=== PATIENT | male | born 1980 | race Caucasian/White ===

== ENCOUNTER 2017-03-15 23:06 | Observation (INO) | payer OTHER ==
[2017-03-15 23:09] VITALS: BP 160/99; PULSE 88; RESP 18; TEMP 98.6; O2SAT 97
[2017-03-16] VITALS (9 sets, daily range): BP systolic 87–142; BP diastolic 51–84; PULSE 50–81; RESP 18–20; TEMP 98–98.2; O2SAT 96–100
[2017-03-16] MEDS ORDERED: SODIUM CHLORIDE 0.9% FLUSH 10 ML FLUSH IVF PRN (00:30)
[2017-03-16] MEDS ORDERED: ORPHENADRINE INJ 60 MG/2 ML AMP IV ONE (00:30)
[2017-03-16] MEDS ORDERED: KETOROLAC TROMETHAMINE 30 MG/ML (IVP) VIAL IV PUSH ONE (00:30)
--- NOTE | 2017-03-16 00:44 | PD ---
HPI Chief Complaint: Respiratory Symptoms Time Seen by Provider: 00:25 Travel History International Travel<30 days: No Contact w/Intl Traveler<30days: No Traveled to known affect area: No History of Present Illness HPI Patient is a 36-year-old male presented to the emergency department for evaluation of shortness of breath and chest tightness. Patient states approximately 9:30 PM this evening he was standing in the kitchen talking to a family member when he suddenly was unable to breathe or catch his breath, at the same time he experienced chest tightness. He states that he grabbed a bottle water walked to the bathroom, his followed him and subsequently called 911 because she did not look well. Patient states that he felt like he was going to pass out at that time. The episode lasted for a few minutes, canceled EMS the patient arrived in private vehicle. 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 He denies any past medical history but does not routinely have physical examinations. He denies any family history of cardiac disease. The patient does not smoke, he drinks occasional alcohol, and leads a mostly sedentary life. PFSH Past Medical History Medical History: Denies Significant Hx Diminished Hearing: No Tetanus Vaccination: Unknown Past Surgical History Surgical History: No Previous Surgery Social History Alcohol Use: No Tobacco Use: No Substance Use: No Allergies-Medications (Allergen,Severity, Reaction): Coded Allergies: No Known Allergies (Unverified , 03/16/17) Reported Meds & Prescriptions Reported Meds & Active Scripts Active No Active Prescriptions or Reported Medications Review of Systems Except as stated in HPI: all other systems reviewed are Neg Cardiovascular: Positive: Chest Pain or Discomfort Respiratory: Positive: Shortness of Breath Musculoskeletal: Positive: Pain Physical Exam Narrative GENERAL: Well-developed, well-nourished, alert male. Resting comfortably in no acute distress. SKIN: Warm and dry. HEAD: Atraumatic. Normocephalic. EYES: Pupils equal and round. No scleral icterus. No injection or drainage. ENT: No nasal bleeding or discharge. Mucous membranes pink and moist. NECK: Trachea midline. No JVD. CARDIOVASCULAR: Regular rate and rhythm. RESPIRATORY: No accessory muscle use. Clear to auscultation. Breath sounds equal bilaterally. GASTROINTESTINAL: Abdomen soft, non-tender, nondistended. Hepatic and splenic margins not palpable. MUSCULOSKELETAL: Extremities without clubbing, cyanosis, or edema. No obvious deformities. Tenderness to palpation of left upper back medial to the scapula NEUROLOGICAL: Awake and alert. No obvious cranial nerve deficits. Motor grossly within normal limits. Five out of 5 muscle strength in the arms and legs. Normal speech. PSYCHIATRIC: Appropriate mood and affect; insight and judgment normal. Data Data Last Documented VS Vital Signs Date Time Temp Pulse Resp B/P Pulse Ox O2 Delivery O2 Flow Rate FiO2 03/16/17 02:19 68 20 128/75 97 Nasal Cannula 2 03/15/17 23:09 98.6 Orders Electrocardiogram (03/16/17 00:25) Basic Metabolic Panel (Bmp) (03/16/17 00:25) Ckmb (Isoenzyme) Profile (03/16/17 00:25) Complete Blood Count With Diff (03/16/17 00:25) Magnesium (Mg) (03/16/17 00:25) Troponin I (03/16/17:25) Ecg Monitoring (03/16/17 00:25) Iv Access Insert/Monitor (03/16/17 00:25) Sodium Chloride 0.9% Flush (Ns Flush) (03/16/17 00:30) Ketorolac Inj (Toradol Inj) (03/16/17 00:30) Orphenadrine Inj (Norflex Inj) (03/16/17 00:30) Lorazepam (Ativan) (03/16/17 00:45) Sodium Chlor 0.9% 1000 Ml Inj (Ns 1000 M (03/16/17 01:30) Chest, Single Ap (03/16/17 ) CKMB (03/16/17 01:30) CKMB% (03/16/17 01:30) Admit Order (Ed Use Only) (03/16/17 02:48) Activity Bed Rest With Brp (03/16/17 02:48) Vital Signs (Adult) Q4H (03/16/17 02:48) Cardiac Rhythm .As Directed (03/16/17 02:48) Notify Dr: Other .PRN (03/16/17 02:48) Notify . Parameters (03/16/17 02:48) Resp Oxygen Nasal Cannula (03/16/17 ) Diet Npo (03/16/17 Breakfast) Ckmb (Isoenzyme) Profile (03/16/17 04:30) Ckmb (Isoenzyme) Profile (03/16/17 07:30) Troponin I (03/16/17 04:30) Troponin I (03/16/17 07:30) Electrocardiogram (03/16/17 04:30) Electrocardiogram (03/16/17 07:30) ^ Obtain (03/16/17 02:48) Sodium Chlor 0.9% 1000 Ml Inj (Ns 1000 M (03/16/17 02:48) Acetaminophen (Tylenol) (03/16/17 03:00) Ondansetron Inj (Zofran Inj) (03/16/17 03:00) Release And Technical Records Clerk / Telemetry [email or web address] (03/16/17 02:48) Labs Laboratory Tests Test 03/16/17 01:30 White Blood Count 8.6 TH/MM3 Red Blood Count 4.97 MIL/MM3 Hemoglobin 14.3 GM/DL Hematocrit 42.7 % Mean Corpuscular Volume 86.1 FL Mean Corpuscular Hemoglobin 28.8 PG Mean Corpuscular Hemoglobin 33.5 % Concent Red Cell Distribution Width 13.4 % Platelet Count 321 TH/MM3 Mean Platelet Volume 6.4 FL Neutrophils (%) (Auto) 51.8 % Lymphocytes (%) (Auto) 36.4 % Monocytes (%) (Auto) 6.9 % Eosinophils (%) (Auto) 4.4 % Basophils (%) (Auto) 0.5 % Neutrophils # (Auto) 4.5 TH/MM3 Lymphocytes # (Auto) 3.1 TH/MM3 Monocytes # (Auto) 0.6 TH/MM3 Eosinophils # (Auto) 0.4 TH/MM3 Basophils # (Auto) 0.0 TH/MM3 CBC Comment DIFF FINAL Differential Comment Sodium Level 142 MEQ/L Potassium Level 3.7 MEQ/L Chloride Level 107 MEQ/L Carbon Dioxide Level 27.1 MEQ/L Anion Gap 8 MEQ/L Blood Urea Nitrogen 10 MG/DL Creatinine 0.87 MG/DL Estimat Glomerular Filtration 99 ML/MIN Rate Random Glucose 97 MG/DL Calcium Level 9.0 MG/DL Magnesium Level 2.1 MG/DL Total Creatine Kinase 427 U/L Creatine Kinase MB 2.7 NG/ML Creatine Kinase MB % 0.6 % Troponin I LESS THAN 0.02 NG/ML MDM Medical Decision Making Medical Screen Exam Complete: Yes Emergency Medical Condition: Yes Interpretation(s) Vital Signs Date Time Temp Pulse Resp B/P Pulse Ox O2 Delivery O2 Flow Rate FiO2 03/16/17 00:21 16 03/15/17 23:09 98.6 88 18 160/99 97 Room Air Differential Diagnosis Esophageal spasms versus acute coronary syndrome versus muscle spasm versus cardiac arrhythmia versus other Narrative Course Patient's a 36-year-old male presenting for evaluation of respiratory symptoms and chest tightness. Labs and imaging ordered pending, at bedside, vital signs stable. RN went to draw patient's blood, patient stated that he is extremely afraid of needles. He was refusing lab draws unless he could be given something to help him calm down. Discussed with my attending physician who ordered oral Ativan. Initial EKG shows normal sinus rhythm Chest x-ray shows no acute disease 0125 during lab draw/IV initiation patient had a vasovagal episode, his blood pressure dropped to 88/52 systolic and his heart rate was in the low 50s. The fluids ordered. Patient was aroused during the entire episode. His vital signs have been routinely assessed since the episode and remained stable. In addition to the vasovagal episode patient is likely experiencing some side effects related to the Ativan. CBC is unremarkable Chemistry is unremarkable Troponin less than 0.02 Discussed treatment with my attending physician prior to the end of his shift, due to patient's chief complaint, symptoms is reasonable to place patient in observation in the chest pain center. Discussed with patient and his are agreeable, orders placed. Diagnosis Primary Impression: Atypical chest pain Admitting Information Admitting Physician Requests: Observation Scripts No Active Prescriptions or Reported Meds Condition: Gemini Ribeiro Ann [employer] Mar 16, 2017 00:44
[2017-03-16] MEDS ORDERED: LORazepam 1 MG TAB PO ONE (00:45)
[2017-03-16] MEDS ORDERED: SODIUM CHLOR 0.9% 1000 ML INJ 1,000 ML IV ONE (01:30)
[2017-03-16 01:46] LABS: AUTOMATED NEUTROPHIL # 4.5 TH/MM3 (1.8-7.7); BASOPHIL % 0.5 % (0.0-2.0); EOSINOPHIL # 0.4 TH/MM3 (0-0.4); EOSINOPHIL % 4.4 % (0.0-4.0); HEMATOCRIT 42.7 % (39.0-51.0); HEMO FLAGS DIFF FINAL; LYMPH % 36.4 % (9.0-44.0); LYMPHOCYTE # 3.1 TH/MM3 (1.0-4.8); MEAN CELL VOLUME 86.1 FL (80.0-100.0); MEAN CORPUSCULAR HEMOGLOBIN 28.8 PG (27.0-34.0); MEAN CORPUSCULAR HGB CONC 33.5 % (32.0-36.0); MONO % 6.9 % (0.0-8.0); NEUT % 51.8 % (16.0-70.0); PLATELET COUNT 321 TH/MM3 (150-450); RED BLOOD COUNT 4.97 MIL/MM3 (4.50-5.90); RED CELL DISTRIBUTION WIDTH 13.4 % (11.6-17.2); WHITE BLOOD COUNT 8.6 TH/MM3 (4.0-11.0)
--- NOTE | 2017-03-16 01:52 | RADRPT ---
EXAM DATE/TIME: 03/16/2017 01:24 [facility] COMPARISON: No previous studies available for comparison. INDICATIONS : Shortness of breath, vasovagal episode post IV insertion. MEDICAL HISTORY : None. SURGICAL HISTORY : None. ENCOUNTER: Initial ACUITY: 1 day PAIN SCORE: Non-responsive. LOCATION: Bilateral chest FINDINGS: A single view of the chest demonstrates the lungs to be symmetrically aerated without evidence of mas s, infiltrate or effusion. The cardiomediastinal contours are unremarkable. Osseous structures are intact. CONCLUSION: No acute disease. Danyel Mohr MD on March 16, 2017 at 1:50 Board Certified Radiologist. This report was verified electronically.
[2017-03-16 02:06] LABS: ANION GAP 8 MEQ/L (5-15); BICARBONATE 27.1 MEQ/L (21.0-32.0); BLOOD UREA NITROGEN 10 MG/DL (7-18); CHLORIDE 107 MEQ/L (98-107); GLOMERULAR FILTRATION RATE 99 ML/MIN (>89); MAGNESIUM 2.1 MG/DL (1.5-2.5); POTASSIUM 3.7 MEQ/L (3.5-5.1); SODIUM (NA) 142 MEQ/L (136-145)
[2017-03-16 02:09] LABS: CREATINE KINASE 427 U/L (39-308)
[2017-03-16 02:22] LABS: CKMB 2.7 NG/ML (0.5-3.6)
[2017-03-16] MEDS ORDERED: SODIUM CHLOR 0.9% 1000 ML INJ 1,000 ML IV SCH (02:48)
[2017-03-16] MEDS ORDERED: ONDANSETRON HCL 4 MG/2 ML VIAL IV PRN (03:00)
[2017-03-16] MEDS ORDERED: ACETAMINOPHEN 500 MG CPLT PO PRN (03:00)
[2017-03-16 05:13] LABS: CREATINE KINASE 366 U/L (39-308)
[2017-03-16 05:26] LABS: CKMB 2.4 NG/ML (0.5-3.6)
[2017-03-16 08:19] LABS: CREATINE KINASE 334 U/L (39-308)
[2017-03-16 08:32] LABS: CKMB 2.4 NG/ML (0.5-3.6)
--- NOTE | 2017-03-16 11:00 | HHI.HP ---
HPI Primary Care Physician No Primary Care Physician Chief Complaint Chest pain History of Present Illness This is a 36-year-old male that presents to ED via private vehicle to evaluate chest discomfort and shortness of breath. He states that around 9:00 last evening is watching television. He suddenly became short of breath or he decided to walk to get something to drink. His symptoms worsen. He then felt like he was about to pass out. His fiance been called 911. By the time they had arrived he was feeling better and decided not to come to the ED by ambulance. He is also having a discomfort in his chest that lasts a few minutes. He had no nausea or diaphoresis. He decided to come to the ED to evaluate his discomfort. Patient states he has history of passing out. He states that whenever he has an IV her gets a shot he will pass out. He states that he passed out in the ED while the IV was being placed in his arm. Denies history of CAD. Cannot recall ever having a stress test. The left side of his upper back has been hurting the last few days. He states a 4 days ago he helped his father take down a carport. Denies recent illnesses. Denies fevers or chills. Review of Systems General: Patient denies fevers, chills recent, and recent travel HEENT: Patient denies headache, sore throat, difficulty swallowing. Cardiovascular: Has the chest discomfort as mentioned above. Denies sensation of heart beating rapidly or irregularly. Denies diaphoresis. He states that he passed out in the ED on IV was being inserted in his left arm. Respiratory: He was short of breath. Denies inspirational chest discomfort. Denies coughing wheezing or hemoptysis. GI: Patient denies nausea, vomiting, diarrhea, abdominal pain, bloody stools. Musculoskeletal: Complains of left upper back pain. Patient denies joint pain or edema. Denies calf pain or edema. Neurovascular: Patient denies numbness, tingling, weakness in extremities. Denies headache. Endocrine: Denies polyuria and polydipsia. Hematologic: Denies easy bruising. Skin: Denies rash or itching. Past Family Social History Allergies: Coded Allergies: No Known Allergies (Unverified , 03/16/17) Past Medical History Denies hypertension, hyperlipidemia, diabetes, and known CAD. Past Surgical History Denies. Reported Medications Reported Meds & Active Scripts Active No Active Prescriptions or Reported Medications Active Ordered Medications Current Medications Medications (Trade) Dose Ordered Sig/Darvin Route Start Time Stop Time Status Last Admin Sodium Chloride 2 ml 2 ml UNSCH PRN IVF 03/16/17 00:30 (NS 1000 ml Inj) 1,000 ml @ 100 mls/hr Q10H IV 03/16/17 02:48 03/16/17 04:45 (Tylenol) 500 mg Q4H PRN PO 03/16/17 03:00 (Zofran Inj) 4 mg Q6H PRN IV 03/16/17 03:00 Family History Denies family history of CAD. Social History Patient denies tobacco abuse. Denies illicit drug use. He drinks on average 6 pack of beer twice a week. He is a supervisor computer operations. Physical Exam Vital Signs Vital Signs Date Time Temp Pulse Resp B/P Pulse Ox O2 Delivery O2 Flow Rate FiO2 03/16/17 08:32 98.0 66 18 142/84 99 03/16/17 06:12 99 Nasal Cannula 2.00 03/16/17 05:06 98.2 74 19 128/63 96 03/16/17 04:44 81 20 134/79 100 Nasal Cannula 2 03/16/17 02:19 68 20 128/75 97 Nasal Cannula 2 03/16/17 01:41 64 20 129/71 99 Nasal Cannula 2 03/16/17 01:29 60 20 122/61 100 Nasal Cannula 2 03/16/17 01:25 50 20 87/53 100 Nasal Cannula 2 03/16/17 01:20 54 20 94/51 100 03/16/17 00:21 16 03/15/17 23:09 98.6 88 18 160/99 97 Room Air Physical Exam GENERAL: This is a well-nourished, well-developed patient, in no apparent distress. Patient speaks in clear complete sentences. Patient is pleasant. HEENT: Head is atraumatic and normocephalic. Neck is supple without lymphadenopathy and trachea is midline. No JVD or carotid bruits. CARDIOVASCULAR: Regular rate and rhythm without murmurs, gallops, or rubs. RESPIRATORY: Clear to auscultation. Breath sounds equal bilaterally. No wheezes , rales, or rhonchi. Chest wall is nontender. No use of accessory muscles. GASTROINTESTINAL: Abdomen is nontender, nondistended. Abdomen soft. No obvious pulsatile mass or bruit. No CVA tenderness. Strong femoral pulses bilaterally. Normal bowel sounds in all quadrants. MUSCULOSKELETAL: Patient is moving upper and lower extremities freely. No calf tenderness or edema, no Homans sign. Strong pulses in upper and lower extremities. NEUROLOGICAL: Patient is alert and oriented. Cranial nerves 2-12 are grossly intact. No focal deficits and speech is clear. SKIN: No rash and turgor is normal. Laboratory Laboratory Tests Test 03/16/17 03/16/17 03/16/17 01:30 04:30 07:30 White Blood Count 8.6 Red Blood Count 4.97 Hemoglobin 14.3 Hematocrit 42.7 Mean Corpuscular Volume 86.1 Mean Corpuscular Hemoglobin 28.8 Mean Corpuscular Hemoglobin 33.5 Concent Red Cell Distribution Width 13.4 Platelet Count 321 Mean Platelet Volume 6.4 Neutrophils (%) (Auto) 51.8 Lymphocytes (%) (Auto) 36.4 Monocytes (%) (Auto) 6.9 Eosinophils (%) (Auto) 4.4 Basophils (%) (Auto) 0.5 Neutrophils # (Auto) 4.5 Lymphocytes # (Auto) 3.1 Monocytes # (Auto) 0.6 Eosinophils # (Auto) 0.4 Basophils # (Auto) 0.0 CBC Comment DIFF FINAL Differential Comment Sodium Level 142 Potassium Level 3.7 Chloride Level 107 Carbon Dioxide Level 27.1 Anion Gap 8 Blood Urea Nitrogen 10 Creatinine 0.87 Estimat Glomerular Filtration 99 Rate Random Glucose 97 Calcium Level 9.0 Magnesium Level 2.1 Total Creatine Kinase 427 366 334 Creatine Kinase MB 2.7 2.4 2.4 Creatine Kinase MB % 0.6 0.7 0.7 Troponin I LESS THAN 0.02 LESS THAN 0.02 LESS THAN 0.02 Result Diagram: 03/16/17 0130 03/16/17 0130 Imaging Last 48 hours Impressions Chest X-Ray 03/16/17 0000 Signed Impressions: Service Date/Time: Thursday, March 16, 2017 01:24 - CONCLUSION: No acute disease. Danyel Mohr MD Course EKGs have sinus rhythm without significant ST segment depressions or elevations. Assessment and Plan Assessment and Plan * Chest pain: Patient has had serial cardiac enzymes and EKGs for ruling out purposes. He will be seen by Dr. Guerrero in the chest pain center. He will undergo a Gareth protocol ETT and if that is nonischemic will be discharged home to follow-up with a local primary care physician. Patient is stable at this time. He is agreeable to this plan. Lamont Ryder Mar 16, 2017 11:00
--- NOTE | 2017-03-16 12:04 | EKG ---
Date Performed: 03/16/2017 Time Performed: 00:30:19 PTAGE: 36 years EKG: Sinus rhythm MODERATE INTRAVENTRICULAR CONDUCTION DELAY BORDERLINE ECG NO PREVIOUS TRACING DOCTOR: Erick Garsia Interpretating Date/Time 03/16/2017 12:03:50
--- NOTE | 2017-03-16 12:10 | EKG ---
Date Performed: 03/16/2017 Time Performed: 04:27:56 PTAGE: 36 years EKG: Sinus rhythm MODERATE INTRAVENTRICULAR CONDUCTION DELAY MODERATE T-WAVE ABNORMALITY, CONSIDER ANTERIOR ISCHEMIA A BNORMAL ECG PREVIOUS TRACING : 03/16/2017 00.30 DOCTOR: Erick Garsia Interpretating Date/Time 03/16/2017 12:09:16
--- NOTE | 2017-03-16 12:26 | TR ---
Date Performed: 03/16/2017 Time Performed: 09:34:42 DOCTOR: Erick Garsia DRUG LIST: CLINICAL HISTORY: REASON FOR TEST: ATYPICAL CHEST PAIN REASON FOR ENDING: OBSERVATION: CONCLUSION: JEANNA PROTOCOL. NO CP. TEST STOPPED AFTER EXCEEDING GOAL HR SECONDARY TO SOB AND LEG FATIGUE. HYPERTENSIVE RESPONSE TO EXERCISE. GOOD EXERCISE TOLERANCE. ECG TRACINGS ARE NEGATIVE FOR I SCHEMIC CHANGES. RECOVERY WAS MILDLY PROLONGED WITH RESOLUTION OF SHORTNESS OF BREATH, BLOOD PRESSURE RETURNED TO NORMAL. Maximum HN=971 % Max HR Achieved=92.0% Maximum GF=438/98 Total Exercise Time=10 :01 COMMENTS: CONCLUSION: Normal exercise treadmill. No evidence of ischemia.
--- NOTE | 2017-03-16 13:42 | HHI.DCPOC ---
Discharge Care Plan Diagnosis: (1) Atypical chest pain Goals to Promote Your Health * To prevent worsening of your condition and complications * To maintain your health at the optimal level Directions to Meet Your Goals Take your medications as prescribed Follow your dietary instruction Follow activity as directed Keep your appointments as scheduled Take your immunizations and boosters as scheduled If your symptoms worsen call your PCP, if no PCP go to Urgent Care Center or Emergency Room Smoking is Dangerous to Your Health. Avoid second hand smoke Call the 24-hour hour crisis hotline for domestic abuse at Lamont Ryder Mar 16, 2017 13:42
--- NOTE | 2017-03-16 14:09 | EKG ---
Date Performed: 03/16/2017 Time Performed: 08:13:23 PTAGE: 36 years EKG: Sinus rhythm MODERATE INTRAVENTRICULAR CONDUCTION DELAY SEPTAL NONSPECIFIC T-WAVE CHANGES ABNORMAL ECG PREVIOUS TRACING : 03/16/2017 07.23 DOCTOR: Erick Garsia Interpretating Date/Time 03/16/2017 14:08:29
== END 2017-03-16 15:54 | disposition home or self-care (01) ==
LOC: NEPD 23:06 → NEDA 03-16 02:54 → NEPGCP 03-16 05:00
PROVIDERS: ADMIT Internal Medicine Interventional Cardiology; ATTEND Internal Medicine Interventional Cardiology
DX: R07.89 Other chest pain (principal)
CPT/HCPCS: 71010; 80048; 82550; 82552; 83735; 84484; 85025; 93005; 93017; 96360; 99285; G0378; J7030